=== PATIENT | female | born 1950 | race Caucasian/White ===

== ENCOUNTER 2017-12-10 07:22 | Day surgery (SDC) | payer MEDICAID, MEDICARE ==
[~2017-12-10] VITALS: Ht 144.8 cm; Wt 54.0 kg
[2017-12-10 07:53] VITALS: BP 111/72
[2017-12-10] MEDS ORDERED: BENZ0.5T PO (07:58)
[2017-12-10] MEDS ORDERED: ESCI20TA PO (07:58)
[2017-12-10] MEDS ORDERED: METF-649 PO (07:58)
[2017-12-10] MEDS ORDERED: ATOR-2 PO (07:58)
[2017-12-10] MEDS ORDERED: GABA300C10 PO (07:58)
[2017-12-10] MEDS ORDERED: RISP2TAB3 PO (07:58)
[2017-12-10] MEDS ORDERED: QUIN20TA17 PO (07:58)
[2017-12-10] MEDS ORDERED: LACTATED RINGERS 1,000 ML IV SCH (08:00)
[2017-12-10] MEDS ORDERED: PLEASE ENTER HEIGHT AND WEIGHT MC SCH (08:30)
[2017-12-10 09:07] LABS: BASOPHILS # (AUTO) 0.05 x10^3/uL (0-0.1); BASOPHILS % (AUTO) 1 % (0-1); EOSINOPHILS # (AUTO) 0.34 x10^3/uL (0-0.4); EOSINOPHILS % (AUTO) 4 % (1-7); LYMPHOCYTES # (AUTO) 2.68 x10^3/uL (1-3.4); LYMPHOCYTES % (AUTO) 32 % (22-44); MD NO; MEAN CORPUSCULAR HEMOGLOBIN 31.5 pg (27.0-34.8); MEAN CORPUSCULAR HGB CONC 33.5 g/dL (32.4-35.8); MEAN CORPUSCULAR VOLUME 94.1 fL (80-100); MEAN PLATELET VOLUME 7.8 fL (7.4-10.4); MONOCYTES % (AUTO) 6 % (2-9); NEUTROPHILS # (AUTO) 4.92 x10^3/uL (1.8-6.8); NEUTROPHILS % (AUTO) 58 % (42-75); PLATELET COUNT 347 x10^3/uL (130-400); RED BLOOD COUNT 4.21 x10^6/uL (3.82-5.3); RED CELL DISTRIBUTION WIDTH 13.4 % (9.6-15.2)
[2017-12-10 09:18] LABS: ALBUMIN 3.9 g/dL (3.4-5.0); ANION GAP 9 mmol/L (5-15); CALCIUM 9.4 mg/dL (8.5-10.1); CHLORIDE 107 mmol/L (98-107)
[2017-12-10 09:23] LABS: ALANINE AMINOTRANSFERASE 23 U/L (12-78); ALKALINE PHOSPHATASE 28 U/L (45-117); BILIRUBIN,TOTAL 0.4 mg/dL (0.2-1.0); TOTAL PROTEIN 7.2 g/dL (6.4-8.2)
[2017-12-10] MEDS ORDERED: PROPOFOL 10 MG/ML, 50ML ONE (09:50)
== END 2017-12-10 11:40 | disposition home or self-care (01) ==
LOC: OUT 07:22
PROVIDERS: ATTEND Internal Medicine Gastroenterology
DX: K57.30 Diverticulosis of large intestine without perforation or abscess without bleeding (principal); K64.8 Other hemorrhoids; J44.9 Chronic obstructive pulmonary disease, unspecified; F32.9 Major depressive disorder, single episode, unspecified; E78.00 Pure hypercholesterolemia, unspecified; G43.909 Migraine, unspecified, not intractable, without status migrainosus; Z86.73 Personal history of transient ischemic attack (TIA), and cerebral infarction without residual deficits; Z98.890 Other specified postprocedural states
CPT/HCPCS: 36415; 45378; 80053; 85025; 93005; J2704

== ENCOUNTER 2018-09-15 11:26 | Inpatient (IN) | payer MEDICARE ==
[~2018-09-15] VITALS: Ht 162.6 cm; Wt 55.0 kg
[~2018-09-15 11:26] MED LIST: ATOR-2 PO; BENZ0.5T35 PO; ESCI20TA PO; GABA300C10 PO; METF-649 PO; QUIN20TA17 PO; RISP2TAB3 PO
[2018-09-15 12:09] LABS: BASOPHILS # (AUTO) 0.04 x10^3/uL (0-0.1); BASOPHILS % (AUTO) 0 % (0-1); EOSINOPHILS # (AUTO) 0.09 x10^3/uL (0-0.4); EOSINOPHILS % (AUTO) 1 % (1-7); LYMPHOCYTES # (AUTO) 2.29 x10^3/uL (1-3.4); LYMPHOCYTES % (AUTO) 24 % (22-44); MD NO; MEAN CORPUSCULAR HGB CONC 33.9 g/dL (32.4-35.8); MEAN CORPUSCULAR VOLUME 94.3 fL (80-100); MEAN PLATELET VOLUME 7.7 fL (7.4-10.4); MONOCYTES # (AUTO) 0.49 x10^3/uL (0.2-0.8); MONOCYTES % (AUTO) 5 % (2-9); NEUTROPHILS % (AUTO) 70 % (42-75); PLATELET COUNT 373 x10^3/uL (130-400); RED BLOOD COUNT 4.15 x10^6/uL (3.82-5.3); RED CELL DISTRIBUTION WIDTH 13.3 % (9.6-15.2)
[2018-09-15 12:20] LABS: INTERNATIONAL NORMALIZED RATIO 1.06 (0.93-1.1); PROTHROMBIN TIME 10.9 Seconds (9.6-11.5)
[2018-09-15 12:23] LABS: ALANINE AMINOTRANSFERASE 27 U/L (12-78); ANION GAP 8 mmol/L (5-15); CALCIUM 9.4 mg/dL (8.5-10.1); CHLORIDE 107 mmol/L (98-107); CREATININE 0.76 mg/dL (0.55-1.02)
[2018-09-15 12:26] LABS: ALKALINE PHOSPHATASE 23 U/L (45-117); BILIRUBIN,TOTAL 0.4 mg/dL (0.2-1.0); TOTAL PROTEIN 7.1 g/dL (6.4-8.2); TROPONIN I < 0.015 ng/mL (0.000-0.045)
[2018-09-15 13:30] VITALS: BP 142/67
[2018-09-15] MEDS ORDERED: BISACODYL 10 MG SUPP PR PRN (13:30)
[2018-09-15] MEDS ORDERED: DOCUSATE 100 MG CAPSULE PO PRN (13:30)
[2018-09-15] MEDS ORDERED: ACETAMINOPHEN 325 MG TABLET PO PRN (13:30)
[2018-09-15] MEDS ORDERED: ENALAPRILAT 1.25 MG/ML, 2ML IVPush PRN (13:30)
[2018-09-15] MEDS ORDERED: POLYETHYLENE GLYCOL 17 GM PACKET PO PRN (13:30)
[2018-09-15] MEDS ORDERED: ONDANSETRON 2MG/ML, 2ML IVPush PRN (13:30)
[2018-09-15 14:20] LABS: FOLATE LEVEL 15.4 ng/mL (3.1-17.5); THYROID STIMULATING HORMONE 0.394 mIU/L (0.358-3.740)
[2018-09-15] MEDS: ENOXAPARIN 40 MG/0.4 ML SQ SCH (16:08)
[2018-09-15 16:35] LABS: TROPONIN I < 0.015 ng/mL (0.000-0.045)
[2018-09-15] MEDS: ATORVASTATIN 80 MG TABLET PO SCH (20:24)
[2018-09-15] MEDS: metFORMIN 500 MG TABLET PO SCH (20:24)
[2018-09-15] MEDS: BENZTROPINE 1 MG TABLET PO SCH (20:24)
[2018-09-15] MEDS: SODIUM CHLORIDE FLUSH 10ML SYR IVF SCH (20:26)
[2018-09-15 20:30] VITALS: BP 147/71
[2018-09-15 20:35] VITALS: BP 155/78
[2018-09-15 20:40] VITALS: BP 158/82
[2018-09-15] MEDS ORDERED: OMNIPAQUE 350 MG/ML, 100ML BOTTLE ONE (22:51)
[2018-09-15 23:24] LABS: TROPONIN I < 0.015 ng/mL (0.000-0.045)
[2018-09-16] VITALS (9 sets, daily range): BP systolic 90–162; BP diastolic 58–92
[2018-09-16] MEDS: QUINAPRIL 20MG TABLET PO SCH (08:01)
[2018-09-16] MEDS: BENZTROPINE 1 MG TABLET PO SCH ×2 (08:01→20:09)
[2018-09-16] MEDS: RISPERIDONE 2 MG TABLET PO SCH (08:02)
[2018-09-16] MEDS: CITALOPRAM 20 MG TABLET PO SCH (08:02)
[2018-09-16] MEDS: GABAPENTIN 300 MG CAPSULE PO SCH (08:02)
[2018-09-16] MEDS: metFORMIN 500 MG TABLET PO SCH ×2 (08:02→20:09)
[2018-09-16] MEDS: SODIUM CHLORIDE FLUSH 10ML SYR IVF SCH ×2 (09:00→20:09)
[2018-09-16] MEDS: SODIUM CHLORIDE 0.9% 1,000 ML IV SCH ×2 (09:37→20:08)
[2018-09-16] MEDS: ENOXAPARIN 40 MG/0.4 ML SQ SCH (14:03)
[2018-09-16 14:26] LABS: MICROSCOPIC NOT IND
[2018-09-16 14:31] LABS: CULTURE INDICATED? NO
[2018-09-16] MEDS: ATORVASTATIN 80 MG TABLET PO SCH (20:09)
[2018-09-17] VITALS (10 sets, daily range): BP systolic 105–148; BP diastolic 58–84
[2018-09-17] MEDS: SODIUM CHLORIDE 0.9% 1,000 ML IV SCH ×3 (04:01→20:01)
[2018-09-17] MEDS: SODIUM CHLORIDE FLUSH 10ML SYR IVF SCH ×2 (08:29→20:02)
[2018-09-17] MEDS: RISPERIDONE 2 MG TABLET PO SCH (08:30)
[2018-09-17] MEDS: GABAPENTIN 300 MG CAPSULE PO SCH (08:30)
[2018-09-17] MEDS: QUINAPRIL 20MG TABLET PO SCH (08:30)
[2018-09-17] MEDS: metFORMIN 500 MG TABLET PO SCH ×2 (08:30→20:02)
[2018-09-17] MEDS: CITALOPRAM 20 MG TABLET PO SCH (08:30)
[2018-09-17] MEDS: BENZTROPINE 1 MG TABLET PO SCH ×2 (08:31→20:02)
[2018-09-17] MEDS: ENOXAPARIN 40 MG/0.4 ML SQ SCH (14:18)
[2018-09-17] MEDS: ATORVASTATIN 80 MG TABLET PO SCH (20:02)
[2018-09-18 01:25] VITALS: BP 119/63
[2018-09-18] MEDS: SODIUM CHLORIDE 0.9% 1,000 ML IV SCH ×2 (03:54→12:00)
[2018-09-18 07:19] VITALS: BP 149/73
[2018-09-18] MEDS: GABAPENTIN 300 MG CAPSULE PO SCH (09:50)
[2018-09-18] MEDS: BENZTROPINE 1 MG TABLET PO SCH (09:50)
[2018-09-18] MEDS: QUINAPRIL 20MG TABLET PO SCH (09:51)
[2018-09-18] MEDS: CITALOPRAM 20 MG TABLET PO SCH (09:51)
[2018-09-18] MEDS: metFORMIN 500 MG TABLET PO SCH (09:51)
[2018-09-18] MEDS: RISPERIDONE 2 MG TABLET PO SCH (09:51)
[2018-09-18] MEDS: SODIUM CHLORIDE FLUSH 10ML SYR IVF SCH (09:53)
[2018-09-18 13:57] VITALS: BP 121/67
[2018-09-18] MEDS: ENOXAPARIN 40 MG/0.4 ML SQ SCH (14:00)
== END 2018-09-18 17:26 | disposition home health service (06) | DRG 74 ==
LOC: ED 13:00 → INTOOBSV 13:01 → EDIP 13:01 → 4WST 13:31 → OBSVTOIN 14:36
PROVIDERS: ADMIT Hospitalist; ATTEND Hospitalist
DX: G90.8 Other disorders of autonomic nervous system (principal); I95.1 Orthostatic hypotension; E11.65 Type 2 diabetes mellitus with hyperglycemia; I11.9 Hypertensive heart disease without heart failure; E78.5 Hyperlipidemia, unspecified; F20.9 Schizophrenia, unspecified; Z79.84 Long term (current) use of oral hypoglycemic drugs; Z87.891 Personal history of nicotine dependence
CPT/HCPCS: 36415; 70450; 71045; 71275; 80053; 81003; 82607; 82746; 83880; 84443; 84484; 85025; 85379; 85610; 85730; 93005; 93306; 93880; 96372; 99285; G0378; J1650; Q9967; J7030